=== PATIENT | male | born 1965 | race Caucasian/White ===

== ENCOUNTER → 2023-11-21 06:15 | Day surgery (SDC) | payer OTHER, SELFPAY | LOC: GI 06:15 | PROVIDERS: ATTENDING PHYSICIAN Surgery | DX: Z12.11 Encounter for screening for malignant neoplasm of colon (principal); K64.9 Unspecified hemorrhoids; K57.30 Diverticulosis of large intestine without perforation or abscess without bleeding; D12.3 Benign neoplasm of transverse colon | CPT/HCPCS: 45380; 88305 ==

== ENCOUNTER 2024-11-04 16:06 | Emergency (ER) | payer OTHER, SELFPAY ==
[2024-11-04 16:15] VITALS: BP 127/77
[2024-11-04 16:46] LABS: Hematocrit 45.1 % (39.0-52.0); Hemoglobin 15.9 g/dL (13.0-18.0); Mean Corp Hgb Conc. 35.3 g/dL (33.0-37.0); Mean Corpuscular Volume 87.6 fL (80.0-94.0); Nucleated Red Blood Cells % 0 % (-); Platelet Count 394 10^3/uL (130-400); Red Cell Dist. Width 13.1 % (11.5-14.5)
[2024-11-04 16:47] LABS: ALT (SGPT) 23 U/L (0-50); AST (SGOT) 22 U/L (17-59); Albumin 4.8 g/dl (3.5-5.0); Alkaline Phosphatase 111 U/L (38-126); Blood Urea Nitrogen 15 mg/dl (9-20); Calcium 9.7 mg/dl (8.4-10.2); Carbon Dioxide 24 mmol/L (22-30); Chloride 103 mmol/L (98-107); Glucose 119 mg/dl (70-99); Potassium 4.6 mmol/L (3.5-5.1); Sodium 136 mmol/L (135-145); Total Protein 7.6 g/dl (6.3-8.2); eGFR > 60.00
[2024-11-04 17:09] LABS: Urine Character Clear (Clear)
[2024-11-04 17:24] LABS: Urine Red Blood Cell 16-20 /HPF (0-2); Urine Squamous Cell 0-2 /LPF (Few)
[2024-11-04 17:51] VITALS: BP 140/80; BMI 29.8
[2024-11-04] MEDS: NSS 1000 IV (18:48)
[2024-11-04] MEDS: DILAUDID 0.5 MG IV (18:49)
[2024-11-04] MEDS: ZOFRAN 4 MG IV (18:49)
[2024-11-04] MEDS: FLOMAX 0.4 MG PO (20:14)
--- NOTE | 2024-11-04 21:38 | ED.GENMED ---
History of Present Illness
General
Chief Complaint: Flank Pain
Source: patient
Exam Limitations: none
Time Seen by Provider: 11/04/24 17:41
Nursing documentation reviewed up to this point in time: agreed with
History of Present Illness
History of Present Illness:
Patient is a 59-year-old healthy male with history of kidney stones who presents to the emergency department acute onset right abdominal pain this morning. Patient was working from home earlier this morning when he developed pain in his right
flank/right mid abdomen. Symptoms were acute onset and quickly intensified to the point where he was 'bent over in pain'. Patient then developed nausea and has had multiple episodes of vomiting. He denies any fever or chills. He denies any
diarrhea/constipation. Patient states he has been able to urinate since onset of symptoms however feels a constant urge to pee with very little urine production. He denies any hematuria or dysuria. He denies any chest pain or shortness of breath.
He states that he was at his normal state of health his morning when he woke and had his typical breakfast.
Patient did take Motrin twice throughout the day which moderately improved symptoms temporarily.
Patient does have a history of similar symptoms many years ago when he was found to have a large kidney stone which required lithotripsy. He follows with Dr. Alfred yearly as his primary urologist.
Past History
Past History
ED Past Medical History: None
ED Past Surgical History: Other (Hernia surgery)
Patient has exhibited threatening behavior?: No
Social History
Tobacco: Non-smoker
Alcohol: None
Living: with family
Review of Systems
Review of Systems
Allergies reviewed?: Yes
All Other Systems: ROS reviewed and negative except as documented in HPI and ROS
Phy Exam
Physical Exam
Physical Exam:
Vitals: Patient's vital signs are stable. Afebrile
General: Patient is in no distress
Skin: Warm and dry, no rashes or lesions
Head: Normocephalic, atraumatic
Eyes: Sclera nonicteric.
Throat: Protecting airway
Neck: Normal ROM, no cervical spine tenderness, no meningismus
Cardiac: Regular rate and rhythm, no murmurs.
Pulm: Normal respiratory effort, no wheezes, rales, rhonchi heard on exam
Abdomen: Abdomen soft. Mild tenderness in right mid abdomen. No focal tenderness at McBurney's point or rebound tenderness. No CVA tenderness
Extremities: No evidence of cyanosis or edema
Neuro: AAOx3. Grossly intact.
Psychiatric: Normal affect.
Course
Orders/Labs/Results
Orders:
Orders
11/04/24 16:22
CMP [Comprehensive Metabolic Panel] Urgent
Complete Blood Count/With Diff Urgent
11/04/24 16:41
Urinalysis Reflex To Culture Urgent
Date Specimen was Collected: 11/04/24
Time Specimen was Collected: 16:40
Urine Microscopic Reflex Cult Urgent
11/04/24 18:15
Abdomen/Pelvis wo Contrast CT [CT Abd/pelvis Wo Iv Cont] Urgent
Comment:
Reason For Exam: Right flank pain; hx kidney stones
0.9% Sodium Chloride 1000 ml [Nss] 1,000 ml IV BOLUS
HYDROmorphone [Dilaudid] 0.5 mg IV NOW STA
Ondansetron Injectable [Zofran] 4 mg IV NOW STA
11/04/24 19:40
Tamsulosin [Flomax] 0.4 mg PO NOW STA
Abnormal Lab Results
11/04/24 11/04/24
16:22 16:41
WBC 11.4 H 10^3/uL
(4.8-10.8)
Abs Immat Gran (auto) 0.1 H 10^3/uL
(0-0.05)
Absolute Neuts (auto) 10.2 H 10^3/uL
(1.4-6.5)
Absolute Lymphs (auto) 0.9 L 10^3/uL
(1.2-3.4)
Neutrophils % 88.9 H %
(42.2-75.2)
Lymphocytes % 7.4 L %
(20.5-51.1)
Glucose 119 H mg/dl
(70-99)
Total Bilirubin 2.7 H mg/dl
(0.2-1.3)
Urine Ketones 3+ A
(Negative)
Ur Occult Blood Reflex 4+ A
(Negative)
Urine RBC 16-20 A /HPF
(0-2)
Urine Bacteria (Reflex) Few A
(Negative)
Urine Albumin (Reflex) 1+ A
(Neg - Trace)
11/04/24 16:22
11/04/24 16:22
Vital Signs
Initial and Last Documented VS:
Initial Vital Signs
Temp Pulse Resp BP Pulse Ox
97.4 F 72 20 127/77 98
11/04/24 16:15 11/04/24 16:15 11/04/24 16:15 11/04/24 16:15 11/04/24 16:15
Last Documented Vital Signs
Temp Pulse Resp BP Pulse Ox
98.2 F 83 16 140/80 98
11/04/24 17:51 11/04/24 17:51 11/04/24 17:51 11/04/24 17:51 11/04/24 21:42
MDM/Problems Addressed
Differential Diagnosis Includes:
Not limited to: Renal colic, pyelonephritis, appendicitis, biliary colic, acute cholecystitis, muscle strain/spasm, incarcerated hernia, etc.
MDM/Problems Addressed:
59-year-old male presenting with acute onset right flank/abdominal pain associated with nausea, vomiting. History of kidney stones and feels similar. No fevers or dysuria. No diarrhea/constipation. Vitals and physical exam as above.
Clinical picture most consistent with renal colic, especially with history of stones. Lower suspicion for acute intra-abdominal infectious process, including appendicitis given benign abdominal exam.
Basic labs were sent prior to my evaluation significant for mild leukocytosis. Chemistry reveals hyperbilirubinemia, which appears to be baseline for patient. No other clinically significant findings. UA with 16-20 RBC�s however no evidence of
infection .
Will check noncontrast CT scan abdomen/pelvis. Will treat pain and reassess.
Update: CT scan reveals 4 mm stone at right UPJ. Suspect this is etiology of patient�s pain. Patient has required lithotripsy in the past however stone was much larger in size. Patient�s pain is well controlled in the emergency department with no
evidence of associated infection. Offered patient admission for pain management however patient feels comfortable with trial of passage of stone outpatient. He will follow up with his urologist.
Return precautions discussed at length. Patient stable for discharge home.
Chronic conditions affecting care:
History of kidney stones
Acute Exacerbation and/or Progression of Chronic Illness:
Ureteral calculus at right UPJ
*Radiology
Radiology exam reviewed: preliminary read by ED provider (CT abdomen/pelvis reviewed by me-obstructing calculus at right UPJ) and radiology read reviewed
*Pulse Oximetry
SaO2: 98
Oxygen Mode of Delivery: Room air
Patient hypoxic: no
*EKG
Interpreted by ED Provider?: NA
*Clinical Informatics Specialist Interpretation
Rate: Clinical Informatics Specialist- N/A
*Critical Care Note
Total Time (30-74mins, 75-104mins- exclusive of procedures): Not Applicable
Patient Management
Escalation/DeEscalation of care consider admission/obs:
Offered admission for pain management however patient's pain well-controlled now and prefer attention of stone passage at home
ED Attending Note
-
Portions of this chart may have been created with voice recognition software.� Occasional wrong word or��sound alike� substitutions may have occurred due to the inherent limitations of voice recognition software.
Discharge Plan
Departure
Patient Disposition: Home (Routine Discharge)
Date of Disposition: 09/09/25
Time of Disposition: 19:36
Patient with high blood pressure during this ER visit?: Yes
Condition: Good
Discharge Problem:
Ureteropelvic junction calculus
Instructions: Kidney Stones (DC), BLOOD PRESSURE
Prescriptions:
New
tamsulosin 0.4 mg capsule
0.4 mg PO DAILY Qty: 14 0RF
ondansetron 4 mg tablet,disintegrating
4 mg PO Q8H PRN (Reason: nausea and vomiting) Qty: 7 0RF
oxycodone 5 mg tablet
5 mg PO Q8H PRN (Reason: Pain) Qty: 7 0RF
No Action
ciprofloxacin HCl 500 MG tablet
500 mg PO BID
tamsulosin 0.4 MG capsule
0.4 mg PO HS
lactobacillus combination no.4 [Probiotic] 1 EACH capsule
1 ea PO BID
Referrals:
El Alfred MD [Active, Urology] - Call in 1-3 days for appt
Navneet Turner MD [Family Provider, Family Practice]
Activity Restrictions/Additional Instructions:
RETURN TO THE EMERGENCY DEPARTMENT WITH ANY FEVERS, CHILLS, DIFFICULTIES URINATING, INTRACTABLE NAUSEA/VOMITING, SEVERE PAIN, WORSENING CURRENT SYMPTOMS, OR ANY OTHER CONCERNS
-Your CT scan showed a 4 mm right-sided kidney stone at the UPJ. You can take Motrin and/or Tylenol as needed for pain. For severe pain�you can take oxycodone. This may cause drowsiness he should not take prior to driving. In addition�you should
take Flomax once daily or until you passed the stone. Is important stay well-hydrated.
- As discussed�your bilirubin level was elevated in the emergency department. Please have this repeated with your primary care to ensure trending down or stable.
- Follow-up with urology for further evaluation/management to ensure passage of stone.
Monitor your symptoms closely and return to the emergency department with any acute worsening/new symptoms or any other concerns
Interventions
Interventions:
*Risk Screen - Suicide Last Done: 11/04/24 16:15
*General Assessment Last Done: 11/04/24 16:15
*Neglect/Abuse Screening Last Done: 11/04/24 20:35
*ED- Fall Risk Assessment Last Done: 11/04/24 20:35
*ED COVID-19 Vaccine History Last Done: 11/04/24 20:35
*Nursing Disposition Last Done: 11/04/24 20:35
KI-Mecyly-Qywampqulv Assessment Last Done: 11/04/24 18:04
ED-Male Genitourinary Assessment Last Done: 11/04/24 18:04
Discharge Date and Time
Discharge Date/Time: 11/04/24 20:37
Print Language: ALBANIAN
== END 2024-11-04 20:37 | disposition home or self-care (01) ==
LOC: EMR 16:06
PROVIDERS: EMERGENCY PHYSICIAN Student in an Organized Health Care Education/Training Program; FAMILY PHYSICIAN Student in an Organized Health Care Education/Training Program
DX: N20.2 Calculus of kidney with calculus of ureter (principal); R17 Unspecified jaundice; Z87.441 Personal history of nephrotic syndrome; Z87.442 Personal history of urinary calculi
CPT/HCPCS: 99284; 96374; 96375; 96361; 74176; 80053; 81003; 81015; 85025